=== PATIENT | male | born 1960 | race Caucasian/White ===

== ENCOUNTER 2018-01-17 15:37 | Emergency (ER) | payer OTHER ==
[~2018-01-17] VITALS: Wt 77.1 kg
--- NOTE | ~2018-01-17 | EKG ---
[place], [place] ELECTROCARDIOGRAM REPORT NAME: HELGA RITTER UNIT #: [id number] ROOM: DOCTOR: EPIPHANY DRAFT REPORT BIRTHDATE: [birth year] [facility] Test Date: 2018-01-17 Test Time: 16:01:14 Pat Name: HELGA RITTER Department: Room: Gender: Junior Oracle Dba: : 1960 Requested By: WOLFGANG GREWAL Order Number: [id number] Reading MD: Kirby Floyd MD Measurements Intervals [place] Rate: 110 P: 63 MT: 162 QRS: 55 QRSD: 84 T: 55 QT: 321 QTc: 435 Interpretive Statements Sinus tachycardia Baseline wander in lead(s) V6 Electronically Signed On 01-18-2018 15:28:28 PST by Kirby Floyd MD CM:EKGRPT:ELECTROCARDIOGRAM REPORT [id number] WOLFGANG DUKES DRAFT REPORT WOLFGANG GREWAL MD
[~2018-01-17 15:37] MED LIST: MEDROL DOSEPAK4 MG PO; ULTRAM50 MG PO
[2018-01-17 16:09] LABS: BASO % 0.2 % (0.0-1.0); EOS % 0.3 % (1.0-4.0); HEMATOCRIT 47.8 % (42.0-52.0); HEMOGLOBIN 16.5 g/dl (14.0-18.0); LYMPH # 1.7 10*3/uL (1.3-4.4); LYMPH % 13.4 % (27.0-41.0); MEAN CELL VOLUME 89.8 fl (80.0-94.0); MEAN CORPUSCULAR HGB CONC 34.5 g/dl (33.0-37.0); MEAN PLATELET VOLUME 9.8 fl (9.6-12.3); MONO # 1.3 10*3/uL (0.1-1.0); MONO % 9.9 % (3.0-9.0); NEUT # 9.7 10*3/uL (2.3-7.9); NEUT % 75.9 % (47.0-73.0); PLATELET COUNT AUTOMATED 216 10*3/uL (130-400); RED BLOOD COUNT 5.32 10*6/uL (4.50-5.90); RED CELL DISTRI WIDTH 14.1 % (0-14.5); WHITE BLOOD COUNT 12.8 10*3/uL (4.8-10.8)
[2018-01-17 16:17] LABS: ACT PARTIAL THROMBO TIME 26.9 SECONDS (20.8-31.5); INTERNATIONAL NORM RATIO 1.1 (2.0-3.5)
[2018-01-17 16:26] LABS: ALBUMIN 3.5 gm/dl (3.1-4.5); ALKALINE PHOSPHATASE 57 U/L (45-117); BUN 6 mg/dl (7-24); CHLORIDE 107 mmol/L (98-107); CREATININE 1.09 mg/dL (0.70-1.30); POTASSIUM 3.4 mmol/L (3.5-5.1); SGOT/AST 18 IU/L (3-35); SGPT/ALT 26 U/L (12-78); SODIUM 137 mmol/L (136-145); TOTAL PROTEIN 8.3 gm/dL (6.4-8.2)
[2018-01-17 16:32] LABS: ETHYL ALCOHOL < 3.0 mg/dl (<3); TROPONIN I < 0.015 ng/ml (<0.045)
[2018-01-17] MEDS ORDERED: AUGMENTIN 875875 MG PO (16:51)
== END 2018-01-17 17:29 | disposition left against medical advice (07) ==
LOC: ED 15:37
PROVIDERS: Emergency Medicine
DX: L03.114 Cellulitis of left upper limb (principal); B88.8 Other specified infestations; F17.210 Nicotine dependence, cigarettes, uncomplicated

== ENCOUNTER → 2019-09-30 | Outpatient (CLI) | payer OTHER ==
[~2019-09-30] MED LIST changes: +AUGMENTIN 875875 MG PO
[2019-09-30 15:24] LABS: HEMATOCRIT 51.1 % (42.0-52.0); MEAN CORPUSCULAR HGB 29.1 pg (27.0-31.0); MEAN CORPUSCULAR HGB CONC 32.7 g/dl (33.0-37.0); MEAN PLATELET VOLUME 9.9 fl (9.6-12.3); RED BLOOD COUNT 5.74 10*6/uL (4.50-5.90); RED CELL DISTRI WIDTH 14.7 % (0-14.5); WHITE BLOOD COUNT 8.2 10*3/uL (4.8-10.8)
[2019-09-30 16:13] LABS: ALBUMIN 3.6 gm/dl (3.1-4.5); BUN 15 mg/dl (7-24); CHLORIDE 109 mmol/L (98-107); CHOLESTEROL 265 mg/dL (<200); CREATININE 1.03 mg/dL (0.70-1.30); POTASSIUM 3.8 mmol/L (3.5-5.1); SGOT/AST 24 IU/L (3-35); SGPT/ALT 40 U/L (12-78); SODIUM 137 mmol/L (136-145); TOTAL PROTEIN 8.2 gm/dL (6.4-8.2); TRIGLYCERIDES 320 mg/dl (<150); VLDL CHOLESTEROL 64 mg/dL (6-40)
[2019-09-30 16:16] LABS: ALKALINE PHOSPHATASE 68 U/L (45-117); HDL CHOLESTEROL 41 mg/dl (40-60); LDL CHOLESTEROL 160 mg/dL (9-159)
[2019-09-30 16:18] LABS: VITAMIN D, 25-HYDROXY 22.7 ng/mL (30-100)
== END | disposition home or self-care (01) ==
LOC: LAB 14:38
PROVIDERS: Family Medicine
DX: Z12.5 Encounter for screening for malignant neoplasm of prostate (principal); J44.9 Chronic obstructive pulmonary disease, unspecified; R53.83 Other fatigue; E78.00 Pure hypercholesterolemia, unspecified; E55.9 Vitamin D deficiency, unspecified

== ENCOUNTER → 2019-10-08 | Outpatient (CLI) | payer OTHER | END | disposition home or self-care (01) | LOC: CT 13:52 | DX: J44.9 Chronic obstructive pulmonary disease, unspecified (principal); R06.02 Shortness of breath; R06.00 Dyspnea, unspecified ==

== ENCOUNTER 2019-10-09 17:52 | Emergency (ER) | payer OTHER | END 2019-10-09 17:59 | disposition left against medical advice (07) | LOC: ED 17:52 | DX: T40.1X1A Poisoning by heroin, accidental (unintentional), initial encounter (principal); F32.9 Major depressive disorder, single episode, unspecified; Z53.21 Procedure and treatment not carried out due to patient leaving prior to being seen by health care provider; Y92.89 Other specified places as the place of occurrence of the external cause ==

== ENCOUNTER 2019-12-26 16:43 | Emergency (ER) | payer OTHER ==
[~2019-12-26] VITALS: Wt 77.1 kg
[2019-12-26] MEDS ORDERED: CYCLOBENZAPRINE5 M3 PO ×3 (18:10→18:23)
[2019-12-26] MEDS ORDERED: NAPROSYN500 MG PO ×3 (18:10→18:23)
== END 2019-12-26 18:17 | disposition home or self-care (01) ==
LOC: ED 16:43
DX: S16.1XXA Strain of muscle, fascia and tendon at neck level, initial encounter (principal); V43.52XA Car driver injured in collision with other type car in traffic accident, initial encounter; Y93.89 Activity, other specified; Y92.89 Other specified places as the place of occurrence of the external cause; Y99.8 Other external cause status

== ENCOUNTER → 2020-07-11 | Outpatient (CLI) | payer OTHER ==
[~2020-07-11] MED LIST changes: +CYCLOBENZAPRINE5 M3 PO; +NAPROSYN500 MG PO
[2020-07-11 16:38] LABS: HEMATOCRIT 56.8 % (42.0-52.0); MEAN CELL VOLUME 89.3 fl (80.0-94.0); MEAN CORPUSCULAR HGB 29.6 pg (27.0-31.0); MEAN CORPUSCULAR HGB CONC 33.1 g/dl (33.0-37.0); MEAN PLATELET VOLUME 10.2 fl (9.6-12.3); RED BLOOD COUNT 6.36 10*6/uL (4.50-5.90); RED CELL DISTRI WIDTH 15.3 % (0-14.5); WHITE BLOOD COUNT 7.7 10*3/uL (4.8-10.8)
[2020-07-11 17:10] LABS: ALBUMIN 3.5 gm/dl (3.1-4.5); ALKALINE PHOSPHATASE 83 U/L (45-117); BUN 16 mg/dl (7-24); CHLORIDE 106 mmol/L (98-107); CHOLESTEROL 245 mg/dL (<200); CREATININE 1.15 mg/dL (0.70-1.30); HDL CHOLESTEROL 40 mg/dl (40-60); LDL CHOLESTEROL 175 mg/dL (9-159); SGOT/AST 165 IU/L (3-35); SGPT/ALT 198 U/L (12-78); SODIUM 136 mmol/L (136-145); TOTAL PROTEIN 8.6 gm/dL (6.4-8.2); TRIGLYCERIDES 149 mg/dl (<150); VLDL CHOLESTEROL 30 mg/dL (6-40)
[2020-07-11 18:03] LABS: VITAMIN D, 25-HYDROXY 30.3 ng/mL (30-100)
== END | disposition home or self-care (01) ==
LOC: LAB 16:00
PROVIDERS: ATTEND Family Medicine
DX: Z12.5 Encounter for screening for malignant neoplasm of prostate (principal); E78.00 Pure hypercholesterolemia, unspecified; J44.9 Chronic obstructive pulmonary disease, unspecified; R53.83 Other fatigue; E55.9 Vitamin D deficiency, unspecified; R06.02 Shortness of breath

== ENCOUNTER → 2021-01-09 | Outpatient (CLI) | payer OTHER ==
[2021-01-09 13:30] LABS: HEMATOCRIT 48.8 % (42.0-52.0); MEAN CELL VOLUME 89.1 fl (80.0-94.0); MEAN CORPUSCULAR HGB 29.7 pg (27.0-31.0); MEAN CORPUSCULAR HGB CONC 33.4 g/dl (33.0-37.0); MEAN PLATELET VOLUME 9.5 fl (9.6-12.3); RED BLOOD COUNT 5.48 10*6/uL (4.50-5.90); RED CELL DISTRI WIDTH 14.6 % (0-14.5); WHITE BLOOD COUNT 5.9 10*3/uL (4.8-10.8)
[2021-01-09 14:00] LABS: ALBUMIN 3.1 gm/dl (3.1-4.5); ALKALINE PHOSPHATASE 79 U/L (45-117); BUN 11 mg/dl (7-24); CHLORIDE 110 mmol/L (98-107); CHOLESTEROL 242 mg/dL (<200); CREATININE 0.84 mg/dL (0.70-1.30); LDL CHOLESTEROL 160 mg/dL (9-159); POTASSIUM 3.9 mmol/L (3.5-5.1); SGOT/AST 68 IU/L (3-35); SGPT/ALT 97 U/L (12-78); SODIUM 138 mmol/L (136-145); TOTAL PROTEIN 8.2 gm/dL (6.4-8.2); TRIGLYCERIDES 166 mg/dl (<150)
== END | disposition home or self-care (01) ==
LOC: LAB 13:16
PROVIDERS: ATTEND Family Medicine
DX: Z12.5 Encounter for screening for malignant neoplasm of prostate (principal); J44.9 Chronic obstructive pulmonary disease, unspecified; E78.00 Pure hypercholesterolemia, unspecified; F17.200 Nicotine dependence, unspecified, uncomplicated